=== PATIENT | female | born 1945 | race Hispanic/Latino ===

== ENCOUNTER 2019-04-14 17:24 | Observation (INO) | payer OTHER ==
[~2019-04-14] VITALS: Ht 134.6 cm; Wt 75.6 kg
[2019-04-14 18:09] LABS: BASOPHILS % (AUTO) 1.3 % (0.0-5.0); HEMATOCRIT 36.9 % (36-48); LYMPHOCYTES % (AUTO) 33.6 % (21.0-51.0); MEAN CORPUSCULAR HEMOGLOBIN 29.2 pg (27.0-33.0); MEAN CORPUSCULAR HGB CONC 32.8 g/dL (32.0-36.0); MEAN CORPUSCULAR VOLUME 88.9 fL (79-99); MONOCYTES % (AUTO) 7.7 % (3.0-13.0); NEUTROPHILS % (AUTO) 54.9 % (40.0-77.0); PLATELET COUNT (AUTO) 270 K/uL (130-400); RED BLOOD CELL COUNT(AUTO) 4.15 MIL/uL (4.00-5.50); RED CELL DISTRIBUTION WIDTH 11.8 % (11.0-15.5); WHITE BLOOD COUNT (AUTO) 6.1 K/uL (4.8-10.8)
[2019-04-14 18:21] LABS: INR 0.97 (0.85-1.15); PARTIAL THROMBOPLASTIN TIME 26.8 SEC (26.3-35.5); PROTHROMBIN TIME 10.5 SEC (9.6-11.6)
[2019-04-14] MEDS ORDERED: IOHEXOL-350 75 ML VIAL IV ONE (18:43)
[2019-04-14 18:48] LABS: CREATININE 1.2 mg/dL (0.5-1.5); POTASSIUM 3.7 mmol/L (3.5-5.1)
[2019-04-14 18:52] LABS: APPEARANCE,URINE Clear (CLEAR); BILIRUBIN,URINE Negative (NEGATIVE); COLOR,URINE Yellow (YELLOW); GLUCOSE, URINE (UA) Negative (NEGATIVE); KETONES,URINE Negative (NEGATIVE); LEUKOCYTE ESTERASE ,URINE Large (NEGATIVE); NITRATE,URINE Negative (NEGATIVE); OCCULT BLOOD,URINE Negative (NEGATIVE); PH,URINE 5.5 (5.0-8.0); PROTEIN,URINE Negative (NEGATIVE); UROBILINOGEN,URINE 0.2 mg/dL (0.2-1.0)
[2019-04-14 18:57] LABS: ALBUMIN 4.1 g/dL (3.5-5.0); BILIRUBIN,TOTAL 0.4 mg/dL (0.2-1.0); TOTAL PROTEIN, SERUM 8.3 g/dL (6.0-8.3)
[2019-04-14 19:04] LABS: AMPHET/METH SCREEN,URINE NEGATIVE (NEGATIVE); BARBITURATE SCREEN, URINE NEGATIVE (NEGATIVE); BENZODIAZEPINES SCREEN,URINE NEGATIVE (NEGATIVE); CANNABINOID SCREEN,URINE NEGATIVE (NEGATIVE); COCAINE SCREEN,URINE NEGATIVE (NEGATIVE); OPIATE SCREEN,URINE NEGATIVE (NEGATIVE); PHENCYCLIDINE SCREEN,URINE NEGATIVE (NEGATIVE)
[2019-04-14] MEDS ORDERED: ASPIRIN 325 MG TABLET ONE (19:26)
[2019-04-14 19:34] LABS: BACTERIA,URINE Many /HPF (None Seen); RBC,URINE None Seen /HPF (0-1); SQUAMOUS EPITHELIAL CELL,UR 0-2 /HPF (0-2)
[2019-04-14] MEDS ORDERED: ONDANSETRON HCL 4 MG/2 ML VIAL IV PRN (20:00)
[2019-04-14] MEDS ORDERED: HYDRALAZINE HCL 20 MG/ML VIAL IV PRN (20:00)
[2019-04-14] MEDS ORDERED: ACETAMINOPHEN 325 MG TAB PO PRN ×2 (20:00)
[2019-04-14] MEDS: CEFTRIAXONE SODIUM 1 GM IV SCH (20:00)
[2019-04-14] MEDS ORDERED: LACTULOSE 20 GM/30 ML UDCUP PO PRN (20:00)
[2019-04-14 20:50] LABS: THYROID STIMULATING HORMONE 5.7 uIU/mL (0.36-3.74)
[2019-04-14] MEDS: INSULIN HUMULIN R 100 UNIT/ML 3ML SQ SCH (21:00)
[2019-04-14] MEDS ORDERED: FAMOTIDINE 20MG TAB 20 MG TAB ONE (21:15)
[2019-04-14] MEDS ORDERED: CLOPIDOGREL BISULFATE 75 MG TAB ONE (21:15)
[2019-04-14] MEDS ORDERED: CEFTRIAXONE SODIUM 1 GM ONE (21:15)
[2019-04-14 22:15] VITALS: BP 156/76
[2019-04-15 04:18] VITALS: BP 127/65
[2019-04-15 05:01] LABS: BASOPHILS % (AUTO) 0.7 % (0.0-5.0); EOSINOPHILS % (AUTO) 3.1 % (0.0-8.0); HEMATOCRIT 32.6 % (36-48); LYMPHOCYTES % (AUTO) 34.8 % (21.0-51.0); MEAN CORPUSCULAR HEMOGLOBIN 29.4 pg (27.0-33.0); MEAN CORPUSCULAR HGB CONC 32.8 g/dL (32.0-36.0); MEAN CORPUSCULAR VOLUME 89.6 fL (79-99); MONOCYTES % (AUTO) 9.1 % (3.0-13.0); NEUTROPHILS % (AUTO) 51.9 % (40.0-77.0); PLATELET COUNT (AUTO) 222 K/uL (130-400); RED BLOOD CELL COUNT(AUTO) 3.64 MIL/uL (4.00-5.50); RED CELL DISTRIBUTION WIDTH 11.9 % (11.0-15.5); WHITE BLOOD COUNT (AUTO) 5.4 K/uL (4.8-10.8)
[2019-04-15 05:09] LABS: POTASSIUM 3.5 mmol/L (3.5-5.1)
[2019-04-15] MEDS: INSULIN HUMULIN R 100 UNIT/ML 3ML SQ SCH ×4 (06:33→21:00)
[2019-04-15 07:30] VITALS: BP 137/77
[2019-04-15] MEDS: CLOPIDOGREL BISULFATE 75 MG TAB PO SCH (08:22)
[2019-04-15] MEDS: FAMOTIDINE 20MG TAB 20 MG TAB PO SCH (08:22)
[2019-04-15] MEDS ORDERED: ASPIRIN 325 MG TABLET PO SCH (09:00)
--- NOTE | 2019-04-15 10:00 | NUR ---
DR. PEDRAZA HERE, FOR NEURO ASSESSMENT . CARE TO FOLLOW,
--- NOTE | 2019-04-15 10:00 | NUR ---
HERE,FOR ASSESSMENT, WITH RECOMMANDATION TO FOLLOW .
[2019-04-15 11:00] VITALS: BP 139/79
[2019-04-15] MEDS: ASPIRIN 81MG TAB.CHEW PO SCH (11:14)
--- NOTE | 2019-04-15 13:46 | NUR ---
DYSPHAGIA EVANGY COMPLETED. -S/S OF ASPIRATION. RECOMMENDATIONS REGULAR TEXTURE, THIN LIQUIDS; PILLS WHOLE WITH LIQUIDS. Addendum: 04/15/19 at 1347 by CRISTOBAL STYLES, [facility] Amended: Links added.
[2019-04-15 16:00] VITALS: BP 134/68
--- NOTE | 2019-04-15 17:26 | NUR ---
[id number] patient signed LAMB Letter,I faxed LMAB Letter to [id number] and placed in chart under consent tab
[2019-04-15 19:50] VITALS: BP 153/89
[2019-04-15] MEDS: CEFTRIAXONE SODIUM 1 GM IV SCH (22:08)
[2019-04-15 23:27] VITALS: BP 126/64
[2019-04-16 04:05] VITALS: BP 123/53
[2019-04-16 05:05] LABS: BASOPHILS % (AUTO) 0.9 % (0.0-5.0); EOSINOPHILS % (AUTO) 2.9 % (0.0-8.0); HEMATOCRIT 33.9 % (36-48); LYMPHOCYTES % (AUTO) 27.8 % (21.0-51.0); MEAN CORPUSCULAR HEMOGLOBIN 29.4 pg (27.0-33.0); MEAN CORPUSCULAR HGB CONC 33.3 g/dL (32.0-36.0); MEAN CORPUSCULAR VOLUME 88.1 fL (79-99); MONOCYTES % (AUTO) 7.8 % (3.0-13.0); NEUTROPHILS % (AUTO) 60.1 % (40.0-77.0); PLATELET COUNT (AUTO) 234 K/uL (130-400); RED BLOOD CELL COUNT(AUTO) 3.85 MIL/uL (4.00-5.50); RED CELL DISTRIBUTION WIDTH 11.7 % (11.0-15.5); WHITE BLOOD COUNT (AUTO) 5.8 K/uL (4.8-10.8)
[2019-04-16 05:19] LABS: CREATININE 1.1 mg/dL (0.5-1.5); POTASSIUM 3.8 mmol/L (3.5-5.1)
[2019-04-16] MEDS: INSULIN HUMULIN R 100 UNIT/ML 3ML SQ SCH (06:57)
[2019-04-16 07:30] VITALS: BP 136/73
[2019-04-16] MEDS: ASPIRIN 81MG TAB.CHEW PO SCH (07:56)
[2019-04-16] MEDS: FAMOTIDINE 20MG TAB 20 MG TAB PO SCH (07:56)
[2019-04-16] MEDS: CLOPIDOGREL BISULFATE 75 MG TAB PO SCH (07:57)
[2019-04-16 11:00] VITALS: BP 123/78
[2019-04-16] MEDS ORDERED: SULF1TAB42 PO (11:22)
--- NOTE | 2019-04-16 17:00 | NUR ---
DISCHARGE HOME, PER DISCHARGE NURSE ,TATI Madden R.N. SUMMARY , REVIEW TO FOLLOW WITH MILO MALIK AND HER PRIVATE DR. BETTENCOURT TO HEr rt forarsm was dc per discharge nurse,
== END 2019-04-16 17:00 | disposition home or self-care (01) ==
LOC: EDH 17:24 → EDHIP 19:49 → 4DH 20:53
PROVIDERS: ADMIT Internal Medicine; ATTEND Internal Medicine
DX: G31.9 Degenerative disease of nervous system, unspecified (principal); G45.9 Transient cerebral ischemic attack, unspecified; G51.0 Bell's palsy; N39.0 Urinary tract infection, site not specified; E11.9 Type 2 diabetes mellitus without complications; E78.5 Hyperlipidemia, unspecified; I10 Essential (primary) hypertension; M81.0 Age-related osteoporosis without current pathological fracture; Z86.73 Personal history of transient ischemic attack (TIA), and cerebral infarction without residual deficits; Z88.0 Allergy status to penicillin; Z91.041 Radiographic dye allergy status
CPT/HCPCS: 36415 ×3; 70450; 70551; 71045; 80048 ×2; 80053; 80061; 80305; 81001; 82550; 82948 ×8; 83721; 84443; 84484; 85025 ×3; 85610; 85730; 87077; 87088; 87186; 92610; 93005; 93306; 93356; 96372; 96374; 99285; G0378 ×6; J0696 ×2; J1815; Q9967

== ENCOUNTER 2022-06-13 10:42 | Emergency (ER) | payer OTHER ==
[~2022-06-13] VITALS: Ht 147.3 cm; Wt 63.5 kg
[~2022-06-13 10:42] MED LIST: SULF1TAB42 PO
[2022-06-13 11:18] LABS: BASOPHILS % (AUTO) 0.9 % (0.0-5.0); EOSINOPHILS % (AUTO) 1.9 % (0.0-8.0); HEMATOCRIT 37.5 % (36-48); LYMPHOCYTES % (AUTO) 18.8 % (21.0-51.0); MEAN CORPUSCULAR HEMOGLOBIN 29.6 pg (27.0-33.0); MEAN CORPUSCULAR HGB CONC 33.6 g/dL (32.0-36.0); MONOCYTES % (AUTO) 5.8 % (3.0-13.0); NEUTROPHILS % (AUTO) 72.1 % (40.0-77.0); PLATELET COUNT (AUTO) 282 K/uL (130-400); RED BLOOD CELL COUNT(AUTO) 4.26 MIL/uL (4.00-5.50); RED CELL DISTRIBUTION WIDTH 11.9 % (11.0-15.5)
[2022-06-13] MEDS ORDERED: PANTOPRAZOLE 40 MG/VIAL IVP ONE (11:30)
[2022-06-13] MEDS ORDERED: ONDANSETRON 4MG INJ IVP ONE (11:30)
[2022-06-13] MEDS ORDERED: 0.9% NACL 500ML IV.SOLN 500 ML IV SCH (11:30)
[2022-06-13 11:38] LABS: CREATININE 0.9 mg/dL (0.5-1.5); POTASSIUM 3.9 mmol/L (3.5-5.1)
[2022-06-13 11:43] LABS: ALBUMIN 3.9 g/dL (3.5-5.0)
[2022-06-13] MEDS ORDERED: POLY17PO4 PO ×2 (13:10→13:42)
[2022-06-13] MEDS ORDERED: CIPR-278 PO ×2 (13:10→13:42)
[2022-06-13 13:49] VITALS: BP 132/78
== END 2022-06-13 13:50 | disposition home or self-care (01) ==
LOC: EDH 10:42
DX: K52.9 Noninfective gastroenteritis and colitis, unspecified (principal); K59.00 Constipation, unspecified; R10.13 Epigastric pain; I10 Essential (primary) hypertension; E78.00 Pure hypercholesterolemia, unspecified; E11.9 Type 2 diabetes mellitus without complications; Z88.0 Allergy status to penicillin; Z88.8 Allergy status to other drugs, medicaments and biological substances; Z90.49 Acquired absence of other specified parts of digestive tract
CPT/HCPCS: 99285; 74176; 96374; 71045; 96361; 96375; 82150; 84484; 80053; 83690; 85025; 36415; 93005; J7040; J2405; C9113

== ENCOUNTER 2022-10-19 08:42 | Emergency (ER) | payer OTHER ==
[~2022-10-19] VITALS: Ht 142.2 cm; Wt 64.0 kg
[~2022-10-19 08:42] MED LIST changes: +CIPR-278 PO; +POLY17PO4 PO
[2022-10-19 08:47] VITALS: BP 162/80
[2022-10-19 09:53] LABS: APPEARANCE,URINE SL CLOUDY (CLEAR); BILIRUBIN,URINE NEGATIVE (NEGATIVE); COLOR,URINE YELLOW (YELLOW); GLUCOSE, URINE (UA) 250 mg/dL (NEGATIVE); KETONES,URINE 5 mg/dL (NEGATIVE); LEUKOCYTE ESTERASE ,URINE SMALL Leu/uL (NEGATIVE); NITRATE,URINE POSITIVE (NEGATIVE); OCCULT BLOOD,URINE TRACE-INTACT (NEGATIVE); PH,URINE 5.5 (5.0-8.0); PROTEIN,URINE 100 mg/dL (NEGATIVE)
[2022-10-19 10:02] VITALS: TEMP 102
[2022-10-19] MEDS: ACETAMINOPHEN 325 MG TAB PO ONE (10:02)
[2022-10-19] MEDS: ACETAMINOPHEN 325 MG TAB ONE (10:02)
[2022-10-19 10:36] LABS: ADD UA MICROSCOPIC YES
[2022-10-19 10:54] LABS: BACTERIA,URINE Many /HPF (None Seen); SQUAMOUS EPITHELIAL CELL,UR Few /HPF (0-2); WBC,URINE 26-50 /HPF (0-1)
[2022-10-19 11:07] LABS: COVID19 (SARS ANTIGEN RAPID) PRESUMPTIVE NEGATIVE (NEGATIVE); INFLUENZA TYPE A Negative For Type A (NEGATIVE); INFLUENZA TYPE B Negative For Type B (NEGATIVE)
[2022-10-19] MEDS ORDERED: MACR100 PO (13:06)
[2022-10-19] MEDS: NITROFURANTOIN MONOHYD/M-CRYST 100 MG CAPSULE PO ONE (13:07)
[2022-10-19 13:33] VITALS: PULSE 89; RESP 20; O2SAT 99
== END 2022-10-19 13:34 | disposition home or self-care (01) ==
LOC: EDH 08:42
DX: J02.9 Acute pharyngitis, unspecified (principal); N39.0 Urinary tract infection, site not specified; E11.9 Type 2 diabetes mellitus without complications; E78.00 Pure hypercholesterolemia, unspecified; I10 Essential (primary) hypertension; Z88.0 Allergy status to penicillin; Z88.8 Allergy status to other drugs, medicaments and biological substances; Z90.49 Acquired absence of other specified parts of digestive tract; Z20.822 Contact with and (suspected) exposure to COVID-19
CPT/HCPCS: 81001; 87077; 87088; 87186; 87426; 87804

== ENCOUNTER → 2023-01-18 | Outpatient (CLI) | payer OTHER ==
[~2023-01-18] MED LIST changes: +MACR100 PO
[2023-01-18 16:41] LABS: HEMOGLOBIN A1C 9.4 % (4.0-6.0)
[2023-01-18 16:52] LABS: ALBUMIN 3.9 g/dL (3.5-5.0); BILIRUBIN,TOTAL 0.4 mg/dL (0.2-1.0); POTASSIUM 4.4 mmol/L (3.5-5.1); THYROID STIMULATING HORMONE 3.41 uIU/mL (0.36-3.74); TOTAL PROTEIN, SERUM 8.1 g/dL (6.0-8.3)
== END | disposition home or self-care (01) ==
LOC: LAB 12:42
PROVIDERS: ATTEND Student in an Organized Health Care Education/Training Program
DX: R07.9 Chest pain, unspecified (principal); E78.5 Hyperlipidemia, unspecified; E11.9 Type 2 diabetes mellitus without complications; I10 Essential (primary) hypertension; Z79.899 Other long term (current) drug therapy
CPT/HCPCS: 36415; 80053; 82652; 83036; 84443

== ENCOUNTER → 2023-01-21 | Outpatient (CLI) | payer OTHER | END | disposition home or self-care (01) | LOC: SHCH 09:56 | PROVIDERS: ATTEND Student in an Organized Health Care Education/Training Program | DX: I51.7 Cardiomegaly (principal); R07.9 Chest pain, unspecified | CPT/HCPCS: 93306 ==

== ENCOUNTER → 2023-01-25 | Outpatient (CLI) | payer OTHER ==
[~2023-01-25] MED LIST changes: +IOHEXOL 350 MG/ML 100ML INFUS..BTL IV ONE; +METOPROLOL TARTRATE 1 MG/ML 5ML VIAL IV ONE
== END | disposition home or self-care (01) ==
LOC: RAH 07:32
PROVIDERS: ATTEND Student in an Organized Health Care Education/Training Program
DX: K44.9 Diaphragmatic hernia without obstruction or gangrene (principal); M47.815 Spondylosis without myelopathy or radiculopathy, thoracolumbar region; R07.9 Chest pain, unspecified
CPT/HCPCS: 75574; J3490; Q9967

== ENCOUNTER → 2023-05-15 | Outpatient (CLI) | payer OTHER ==
[~2023-05-15] MED LIST changes: -IOHEXOL 350 MG/ML 100ML INFUS..BTL IV ONE; -METOPROLOL TARTRATE 1 MG/ML 5ML VIAL IV ONE
== END | disposition home or self-care (01) ==
LOC: RAH 10:07
PROVIDERS: ATTEND Family Medicine
DX: I25.110 Atherosclerotic heart disease of native coronary artery with unstable angina pectoris (principal)
CPT/HCPCS: 71046

== ENCOUNTER 2023-05-27 17:22 | Observation (INO) | payer OTHER ==
[~2023-05-27] VITALS: Ht 134.6 cm; Wt 59.0 kg
[2023-05-27 21:29] LABS: BASOPHILS # (AUTO) 0.06 K/uL (0.00-0.20); BASOPHILS % (AUTO) 0.7 % (0.0-5.0); EOSINOPHILS # (AUTO) 0.05 K/uL (0.00-0.70); EOSINOPHILS % (AUTO) 0.6 % (0.0-8.0); HEMATOCRIT 39.3 % (36-48); IMMATURE GRANULOCYTE ABSOLUTE 0.05 K/uL (0-1); LYMPHOCYTES # (AUTO) 1.7 K/uL (1.0-4.8); LYMPHOCYTES % (AUTO) 20.8 % (21.0-51.0); MEAN CORPUSCULAR HEMOGLOBIN 30.8 pg (27.0-33.0); MEAN CORPUSCULAR HGB CONC 34.4 g/dL (32.0-36.0); MEAN CORPUSCULAR VOLUME 89.5 fL (79-99); MONOCYTES # (AUTO) 0.5 K/uL (0.1-1.0); MONOCYTES % (AUTO) 6.4 % (3.0-13.0); NEUTROPHILS # (AUTO) 5.8 K/uL (1.8-7.7); NEUTROPHILS % (AUTO) 70.9 % (40.0-77.0); PLATELET COUNT (AUTO) 316 K/uL (130-400); RED BLOOD CELL COUNT(AUTO) 4.39 MIL/uL (4.00-5.50); RED CELL DISTRIBUTION WIDTH 13.1 % (11.0-15.5); WHITE BLOOD COUNT (AUTO) 8.2 K/uL (4.8-10.8)
[2023-05-27 21:40] LABS: CREATININE 1.3 mg/dL (0.5-1.0); POTASSIUM 4.5 mmol/L (3.5-5.1)
[2023-05-27 21:49] LABS: ALBUMIN 3.8 g/dL (3.5-5.0); BILIRUBIN,TOTAL 0.5 mg/dL (0.2-1.0)
[2023-05-27 22:32] LABS: INR <= 0.93 (0.85-1.15); PROTHROMBIN TIME 10.4 SEC (9.6-11.6)
[2023-05-27 22:33] LABS: APPEARANCE,URINE CLEAR (CLEAR); BILIRUBIN,URINE NEGATIVE (NEGATIVE); COLOR,URINE LIGHT-YELLOW (YELLOW); GLUCOSE, URINE (UA) >=1000 mg/dL (NEGATIVE); KETONES,URINE NEGATIVE (NEGATIVE); LEUKOCYTE ESTERASE ,URINE 75 Leu/uL (NEGATIVE); NITRATE,URINE NEGATIVE (NEGATIVE); OCCULT BLOOD,URINE NEGATIVE (NEGATIVE); PROTEIN,URINE 20 mg/dL (NEGATIVE); UROBILINOGEN,URINE 0.2 mg/dL (0.2-1.0)
[2023-05-27 22:33] LABS: PARTIAL THROMBOPLASTIN TIME 26.5 SEC (26.3-35.5)
[2023-05-27 22:35] LABS: ADD UA MICROSCOPIC YES
[2023-05-27 22:48] LABS: BACTERIA,URINE MANY /HPF (None Seen); SQUAMOUS EPITHELIAL CELL,UR RARE /HPF (0-2)
[2023-05-27 23:07] LABS: SARS-CoV-2, RNA, NAAT NEGATIVE SARS CoV-2 (NEGATIVE)
[2023-05-27 23:11] LABS: INFLUENZA TYPE A Negative For Type A (NEGATIVE); INFLUENZA TYPE B Negative For Type B (NEGATIVE)
[2023-05-28] VITALS (11 sets, daily range): BP systolic 120–196; BP diastolic 58–85; PULSE 21–81; RESP 17–19; O2SAT 94–100
[2023-05-28 01:50] LABS: ABG BASE EXCESS -2.6 mmol/L (-2.0-3.0); ABG HCO3 21.2 mmol/L (21.0-28.0); ABG OXYGEN SATURATION 96.7 % (95.0-99.0); ABG PCO2 34 mmHg (32-45); ABG PH 7.409 (7.35-7.450); PO2, ARTERIAL BG 86.3 mmHg (83.0-108.0); VENT MODE, BG RA (ROOM AIR)
[2023-05-28] MEDS ORDERED: ATOR40TA71 PO (03:25)
[2023-05-28] MEDS ORDERED: PIOG30TA70 PO (03:25)
[2023-05-28] MEDS ORDERED: METF-446 PO (03:25)
[2023-05-28] MEDS ORDERED: LOSA100T59 PO (03:25)
[2023-05-28] MEDS ORDERED: DULA1.5P (03:25)
[2023-05-28] MEDS ORDERED: ALBU90AE2 IH (03:26)
[2023-05-28] MEDS ORDERED: HYDROCODONE/ACETAMINOPHEN 5/325 MG TAB PO PRN (04:00)
[2023-05-28] MEDS ORDERED: ACETAMINOPHEN 650 MG SUPPOSITORY RC PRN (04:00)
[2023-05-28] MEDS ORDERED: LABETALOL 20MG SYG IV PRN (04:00)
[2023-05-28] MEDS ORDERED: ALBUTEROL 0.083% 2.5 MG/3 ML INH IH PRN (04:00)
[2023-05-28] MEDS: LACTATED RINGERS 1000ML 1,000 ML IV SCH (04:07)
[2023-05-28] MEDS: HYDRALAZINE 20MG/ML VIAL IV PRN (05:42)
[2023-05-28] MEDS: INSULIN HUMULIN R 100 UNIT/ML 3ML SQ SCH ×3 (05:51→21:25)
[2023-05-28] MEDS ORDERED: METO25TA6 PO (05:59)
[2023-05-28] MEDS ORDERED: ATOR40TA69 PO (05:59)
[2023-05-28] MEDS ORDERED: METF-526 PO (05:59)
[2023-05-28] MEDS ORDERED: SEMA0.258 SQ (05:59)
[2023-05-28] MEDS ORDERED: DAPA5TAB PO (05:59)
[2023-05-28] MEDS: CEFTRIAXONE 1G VIAL IV SCH (08:01)
[2023-05-28] MEDS: DOCUSATE SODIUM 100 MG CAP PO SCH (08:01)
[2023-05-28] MEDS: FAMOTIDINE 20MG TAB PO SCH (09:49)
[2023-05-28] MEDS: HEPARIN 5,000 UNIT VIAL SQ SCH (09:50)
[2023-05-28] MEDS: SOLU-MEDROL 40MG VIAL IVP SCH (12:33)
[2023-05-28] MEDS: ACETAMINOPHEN 325 MG TAB PO PRN (16:22)
[2023-05-28] MEDS: BUDESONIDE 0.25 MG/2 ML INH IH SCH (18:47)
[2023-05-28] MEDS: IPRATROPIUM/ALBUTEROL SULFATE 3 ML SOLUTION IH SCH (18:48)
[2023-05-28] MEDS: INSULIN HUMULIN R 100 UNIT/ML 3ML SQ ONE (19:58)
[2023-05-28] MEDS: METOPROLOL TARTRATE 25 MG TAB PO SCH (19:59)
[2023-05-28] MEDS: ATORVASTATIN 40 MG TABLET PO SCH (20:00)
[2023-05-29] VITALS (13 sets, daily range): BP systolic 102–144; BP diastolic 54–71; PULSE 66–95; RESP 16–19; O2SAT 97–99
[2023-05-29 04:39] LABS: BASOPHILS # (AUTO) 0.02 K/uL (0.00-0.20); BASOPHILS % (AUTO) 0.2 % (0.0-5.0); HEMATOCRIT 40.1 % (36-48); IMMATURE GRANULOCYTE ABSOLUTE 0.04 K/uL (0-1); LYMPHOCYTES # (AUTO) 0.4 K/uL (1.0-4.8); LYMPHOCYTES % (AUTO) 4.9 % (21.0-51.0); MEAN CORPUSCULAR HEMOGLOBIN 30.8 pg (27.0-33.0); MEAN CORPUSCULAR HGB CONC 34.4 g/dL (32.0-36.0); MEAN CORPUSCULAR VOLUME 89.5 fL (79-99); MONOCYTES # (AUTO) 0.3 K/uL (0.1-1.0); MONOCYTES % (AUTO) 2.8 % (3.0-13.0); NEUTROPHILS # (AUTO) 8.2 K/uL (1.8-7.7); NEUTROPHILS % (AUTO) 91.7 % (40.0-77.0); PLATELET COUNT (AUTO) 321 K/uL (130-400); RED BLOOD CELL COUNT(AUTO) 4.48 MIL/uL (4.00-5.50); RED CELL DISTRIBUTION WIDTH 12.9 % (11.0-15.5); WHITE BLOOD COUNT (AUTO) 8.9 K/uL (4.8-10.8)
[2023-05-29 04:51] LABS: CREATININE 1.2 mg/dL (0.5-1.0); MAGNESIUM 1.8 mg/dL (1.80-2.40); PHOSPHORUS 3.5 mg/dL (2.5-4.9); POTASSIUM 3.8 mmol/L (3.5-5.1)
[2023-05-29] MEDS: KCL 20 MEQ ERTAB PO PRN (05:54)
[2023-05-29] MEDS: MAGNESIUM 2GM PREMIX 50ML 50 ML IV PRN (05:55)
[2023-05-29] MEDS ORDERED: POTASSIUM CHLORIDE 20MEQ/100ML 100 ML IV PRN (06:00)
[2023-05-29] MEDS ORDERED: POTASSIUM CHLORIDE 10% ELIXIR 20 MEQ/15 ML UDCUP PO PRN (06:00)
[2023-05-29] MEDS: CEFTRIAXONE 2GM VIAL IVPB SCH (08:27)
[2023-05-29] MEDS: LOSARTAN 100 MG TABLET PO SCH (08:28)
[2023-05-29] MEDS: INSULIN GLARGINE 100 UNITS/ML 10 ML VIAL SQ SCH (08:37)
[2023-05-29] MEDS: INSULIN LISPRO 100 UNIT/ML 3ML SQ SCH (12:42)
[2023-05-29] MEDS: INSULIN LISPRO 100 UNIT/ML 3ML SQ ONE (12:44)
[2023-05-29] MEDS: SOLU-MEDROL 40MG VIAL IVP SCH (19:35)
[2023-05-29] MEDS: SOLU-MEDROL 40MG VIAL ONE (19:35)
[2023-05-29] MEDS ORDERED: OMEP40CA21 PO (21:52)
[2023-05-29] MEDS ORDERED: OLME20TA68 PO (21:52)
[2023-05-29] MEDS ORDERED: ALEN70TA80 PO (21:52)
[2023-05-29] MEDS ORDERED: FENO54TA6 PO (21:52)
[2023-05-29] MEDS ORDERED: FOLI1 PO (21:52)
[2023-05-29] MEDS ORDERED: DULO30CA52 PO (21:52)
[2023-05-29] MEDS ORDERED: ROSU5TAB12 PO (21:52)
[2023-05-29] MEDS ORDERED: INSU100V37 SQ (21:52)
[2023-05-29] MEDS ORDERED: FOLI0.8T22 PO (21:52)
[2023-05-29] MEDS ORDERED: BUPR-113 PO (21:52)
[2023-05-29] MEDS ORDERED: MORP15TA43 PO (21:52)
[2023-05-29] MEDS ORDERED: DAPA10TA PO (21:52)
[2023-05-29] MEDS ORDERED: LEVO75TA10 PO (21:52)
[2023-05-29] MEDS ORDERED: NORT25CA3 PO (21:52)
[2023-05-30 04:01] VITALS: BP 116/65; PULSE 79; RESP 18
[2023-05-30 04:20] LABS: HEMATOCRIT 31.6 % (36-48); MEAN CORPUSCULAR HEMOGLOBIN 30.3 pg (27.0-33.0); MEAN CORPUSCULAR HGB CONC 34.8 g/dL (32.0-36.0); MEAN CORPUSCULAR VOLUME 87.1 fL (79-99); RED BLOOD CELL COUNT(AUTO) 3.63 MIL/uL (4.00-5.50); RED CELL DISTRIBUTION WIDTH 13.2 % (11.0-15.5); WHITE BLOOD COUNT (AUTO) 9.9 K/uL (4.8-10.8)
[2023-05-30 04:25] LABS: CREATININE 1.1 mg/dL (0.5-1.0); POTASSIUM 4.4 mmol/L (3.5-5.1)
[2023-05-30 06:39] VITALS: PULSE 71; RESP 18; O2SAT 98
[2023-05-30 06:48] VITALS: PULSE 71; RESP 18
[2023-05-30 08:00] VITALS: BP 121/64; PULSE 86; RESP 18; O2SAT 97
[2023-05-30 11:06] VITALS: PULSE 73; RESP 18; O2SAT 98
[2023-05-30 11:07] VITALS: PULSE 73; RESP 18
[2023-05-30] MEDS ORDERED: PRED10TA3 PO ×2 (11:56→14:16)
[2023-05-30] MEDS ORDERED: NITR100C PO ×2 (12:28→14:15)
== END 2023-05-30 15:15 | disposition home or self-care (01) ==
LOC: EDH 17:22 → EDHIP 05-28 03:41 → INTOOBSV 05-28 03:41 → 4AH 05-28 05:21
PROVIDERS: ADMIT Internal Medicine; ATTEND Internal Medicine
DX: J44.1 Chronic obstructive pulmonary disease with (acute) exacerbation (principal); Z20.822 Contact with and (suspected) exposure to COVID-19; N30.00 Acute cystitis without hematuria; I12.9 Hypertensive chronic kidney disease with stage 1 through stage 4 chronic kidney disease, or unspecified chronic kidney disease; E11.22 Type 2 diabetes mellitus with diabetic chronic kidney disease; N18.30 Chronic kidney disease, stage 3 unspecified; N17.9 Acute kidney failure, unspecified; E11.65 Type 2 diabetes mellitus with hyperglycemia; E78.00 Pure hypercholesterolemia, unspecified; I20.0 Unstable angina; E87.1 Hypo-osmolality and hyponatremia; G47.33 Obstructive sleep apnea (adult) (pediatric); N81.4 Uterovaginal prolapse, unspecified; E66.9 Obesity, unspecified; Z88.0 Allergy status to penicillin; Z88.8 Allergy status to other drugs, medicaments and biological substances; Z90.49 Acquired absence of other specified parts of digestive tract; Z68.31 Body mass index [BMI] 31.0-31.9, adult; Z77.22 Contact with and (suspected) exposure to environmental tobacco smoke (acute) (chronic)
CPT/HCPCS: 84484 ×3; 80053; 83880 ×2; 85025 ×2; 85610; 85730; 87088; 87804 ×2; 81001; 36415 ×4; 87635; 71045; 70450; 93005 ×3; 96376 ×3; 96372 ×5; 96361; 96375; 99285; 82803; 85378; 87077; 87186; 82948 ×10; 71250; 93306; 93356; 36600; 94640 ×8; 94664; 96365; 96366 ×2; 96368; 83735 ×2; 84100; 80048 ×2; 97161; 97116 ×2; 97530 ×2; 85027; G0378 ×53; J0360; J0696 ×4; J2920 ×5; J1644 ×5; J1815 ×5; J3475

== ENCOUNTER 2023-09-16 11:53 | Emergency (ER) | payer OTHER ==
[~2023-09-16] VITALS: Ht 144.8 cm; Wt 54.4 kg
[~2023-09-16 11:53] MED LIST changes: -CIPR-278 PO; -MACR100 PO; +NITR100C PO; -POLY17PO4 PO; +PRED10TA3 PO; -SULF1TAB42 PO
[2023-09-16] MEDS: ACETAMINOPHEN 325 MG TAB PO ONE (12:32)
[2023-09-16 13:24] LABS: BASOPHILS # (AUTO) 0.07 K/uL (0.00-0.20); BASOPHILS % (AUTO) 0.9 % (0.0-5.0); EOSINOPHILS # (AUTO) 0.06 K/uL (0.00-0.70); EOSINOPHILS % (AUTO) 0.7 % (0.0-8.0); HEMATOCRIT 38.4 % (36-48); IMMATURE GRANULOCYTE ABSOLUTE 0.06 K/uL (0-1); LYMPHOCYTES # (AUTO) 1.5 K/uL (1.0-4.8); LYMPHOCYTES % (AUTO) 18.4 % (21.0-51.0); MEAN CORPUSCULAR HEMOGLOBIN 30.5 pg (27.0-33.0); MEAN CORPUSCULAR HGB CONC 34.1 g/dL (32.0-36.0); MEAN CORPUSCULAR VOLUME 89.3 fL (79-99); MONOCYTES # (AUTO) 0.6 K/uL (0.1-1.0); MONOCYTES % (AUTO) 7.2 % (3.0-13.0); NEUTROPHILS # (AUTO) 5.8 K/uL (1.8-7.7); NEUTROPHILS % (AUTO) 72.1 % (40.0-77.0); PLATELET COUNT (AUTO) 300 K/uL (130-400); RED CELL DISTRIBUTION WIDTH 11.7 % (11.0-15.5); WHITE BLOOD COUNT (AUTO) 8.1 K/uL (4.8-10.8)
[2023-09-16 13:31] LABS: CREATININE 1.1 mg/dL (0.5-1.0); MAGNESIUM 1.8 mg/dL (1.80-2.40); POTASSIUM 4.7 mmol/L (3.5-5.1)
[2023-09-16] MEDS: 0.9% NACL 500ML IV.SOLN 500 ML IV ONE (14:57)
[2023-09-16] MEDS: INSULIN HUMULIN R 100 UNIT/ML 3ML IV ONE (14:59)
[2023-09-16 15:20] LABS: APPEARANCE,URINE CLEAR (CLEAR); BILIRUBIN,URINE NEGATIVE (NEGATIVE); COLOR,URINE COLORLESS (YELLOW); GLUCOSE, URINE (UA) >=1000 mg/dL (NEGATIVE); KETONES,URINE NEGATIVE (NEGATIVE); LEUKOCYTE ESTERASE ,URINE NEGATIVE Leu/uL (NEGATIVE); NITRATE,URINE NEGATIVE (NEGATIVE); OCCULT BLOOD,URINE NEGATIVE (NEGATIVE); PROTEIN,URINE NEGATIVE (NEGATIVE); UROBILINOGEN,URINE 0.2 mg/dL (0.2-1.0)
[2023-09-16 15:29] LABS: ADD UA MICROSCOPIC YES
[2023-09-16 15:31] LABS: BACTERIA,URINE FEW /HPF (None Seen); MUCUS,URINE RARE LPF (None Seen); RBC,URINE 0-1 /HPF (0-1); WBC,URINE 0-1 /HPF (0-1)
[2023-09-16 16:00] VITALS: BP 108/57; PULSE 50; RESP 18; O2SAT 96
== END 2023-09-16 16:33 | disposition home or self-care (01) ==
LOC: EDH 11:53
DX: S09.8XXA Other specified injuries of head, initial encounter (principal); S00.03XA Contusion of scalp, initial encounter; M79.89 Other specified soft tissue disorders; E86.0 Dehydration; E11.65 Type 2 diabetes mellitus with hyperglycemia; E78.00 Pure hypercholesterolemia, unspecified; I10 Essential (primary) hypertension; Z79.899 Other long term (current) drug therapy; Z88.0 Allergy status to penicillin; Z88.8 Allergy status to other drugs, medicaments and biological substances; Z90.49 Acquired absence of other specified parts of digestive tract; W18.39XA Other fall on same level, initial encounter; Y93.89 Activity, other specified; Y92.89 Other specified places as the place of occurrence of the external cause; Y99.8 Other external cause status
CPT/HCPCS: 99285; 70450; 96374; 83735; 84484; 80048; 85025; 82948; 81001; 36415; 73562; 72125; 93005; J1815; J7040

== ENCOUNTER → 2024-01-01 | Outpatient (CLI) | payer OTHER ==
--- NOTE | 2024-01-03 12:59 | HMCSR ---
APPROVED REPORT Duplex Results A/PTransverseLongitudinalVelocityWaveform Proximal Aorta 2.85cm2.86cm2.84cm81.50 cm/secNormal Mid Aorta 1.84cm1.88cm1.91cm70.80 cm/secNormal Distal Aorta 2.00cm1.90cm1.98cm89.20 cm/secNormal Rt. Common Iliac Artery1.19cm1.30cm1.12cm81.50 cm/secNormal Lt. Common Iliac Artery 1.39cm1.27cm1.31cm73.80 cm/secNormal Techologist Impression The abdominal aorta and the bilateral common iliac arteries are patent and normal in size without dany dence of aneurysm. Conclusion The abdominal aorta and the bilateral common iliac arteries are patent and normal in size without dany dence of aneurysm. Conclusion The abdominal aorta and the bilateral common iliac arteries are patent and normal in size without dany dence of aneurysm.
--- NOTE | 2024-01-03 13:00 | HMCSR ---
APPROVED REPORT Laterality: Bilateral Doppler Spectral Velocity Analysis PSV / EDVPSV / EDV ECA (R) 52 / cm/sECA (L) 58 / cm/s dICA (R) 62 / 23 cm/sdICA (L) 101 / 37 cm/s Jewels (R) 79 / 27 cm/smICA (L) 107 / 40 cm/s pICA (R) 51 / 16 cm/spICA (L) 49 / 16 cm/s dCCA (R) 46 / 15 cm/sdCCA (L) 71 / 19 cm/s mCCA (R) 61 / 14 cm/smCCA (L) 85 / 22 cm/s pCCA (R) 72 / 19 cm/spCCA (L) 81 / 15 cm/s Vert (R) 48 / cm/sVert (L) 49 / cm/s Subl. (R) 99 / cm/sSubl. (L) 93 / cm/s ICA/CCA 1.10ICA/CCA 1.26 Technologist Impression Mild plaque noted in the bilateral carotid arteries without hemodynamic significance. The bilateral vertebral arteries reflect antegrade flow. Conclusion Mild plaque noted in the bilateral carotid arteries without hemodynamic significance. The bilateral vertebral arteries reflect antegrade flow. Conclusion Mild plaque noted in the bilateral carotid arteries without hemodynamic significance. The bilateral vertebral arteries reflect antegrade flow.
== END | disposition home or self-care (01) ==
LOC: SHCH 08:39
PROVIDERS: ATTEND Student in an Organized Health Care Education/Training Program
DX: I65.23 Occlusion and stenosis of bilateral carotid arteries (principal); I71.40 Abdominal aortic aneurysm, without rupture, unspecified; R07.89 Other chest pain
CPT/HCPCS: 93880; 93978

== ENCOUNTER 2024-07-06 01:41 | Emergency (ER) | payer OTHER ==
[~2024-07-06] VITALS: Ht 134.6 cm; Wt 65.3 kg
[~2024-07-06 01:41] MED LIST changes: +SULF1TAB42 PO
[2024-07-06 02:33] LABS: HEMATOCRIT 33.3 % (36-48); MEAN CORPUSCULAR HGB CONC 33.9 g/dL (32.0-36.0); MEAN CORPUSCULAR VOLUME 88.3 fL (79-99); RED BLOOD CELL COUNT(AUTO) 3.77 MIL/uL (4.00-5.50); RED CELL DISTRIBUTION WIDTH 12.5 % (11.0-15.5); WHITE BLOOD COUNT (AUTO) 7.2 K/uL (4.8-10.8)
[2024-07-06 02:34] VITALS: BP 165/58; PULSE 62; RESP 18; TEMP 98.7; O2SAT 98
[2024-07-06 02:48] LABS: CREATININE 1.1 mg/dL (0.5-1.0); POTASSIUM 3.9 mmol/L (3.5-5.1)
--- NOTE | 2024-07-06 03:05 | ERN ---
General Chief Complaint: Vaginal Problems/Bleeding Stated Complaint: VAGINAL BLEEDING Time Seen by MD: 01:50 History of Present Illness Initial Comments 78F presents for vaginal bleeding. Patient has an hx of uterus prolapse. Today, while in the shower, the uterus had fallen out but went back in. She had a small amount of bright red blood. Currently she is pain free and the uterus is intact. She's otherwise been in a normal state of health. Allergies: Coded Allergies: Penicillins (Verified Allergy, Unknown, 04/14/19) iodine (Verified Allergy, Unknown, 04/14/19) Home Meds Active Scripts Sulfamethoxazole/Trimethoprim (Bactrim Ds Tablet) 800 Mg-160 Mg Tablet, 1 TAB PO BID for 7 Days, #14 TAB 0 Refills Prov:MARY GALINDO NP 05/19/24 Prednisone (Prednisone) 10 Mg Tablet, 10 MG PO BID, #35 TAB Take 2 tabs 2 times a day for 5 days Then take 1 tab 2 times a day for 5 days Then take 1 tab 1 time a day for 5 days. Prov:YASHIRA WEINBERG 05/30/23 Nitrofurantoin Macrocrystal (Nitrofurantoin) 100 Mg Capsule, 100 MG PO QID for 5 Days, #20 CAP 0 Refills Prov:YASHIRA WEINBERG 05/30/23 Past Medical History Past Medical History: Diabetes-Type II, High Cholesterol, Hypertension Medical History Other: UTERINE ISSUES Past Surgical History: Cholecystectomy Family History Family History: Negative Social History Social History: Negative, Lives with family Female( History) History: Not Applicable ROS Dictation CONSTITUTIONAL: No chills, no fever, no weakness, no diaphoresis, no malaise. HEAD/FACE: No signs of trauma. EENT: No eye pain, no blurred vision, no tearing, no double vision, no ear pain, no ear discharge, no nose pain, no nasal congestion, no throat pain, no throat swelling, no mouth pain. RESPIRATORY: No cough, no orthopnea, no SOB, no stridor, no wheezing. CARDIOVASCULAR: No chest pain, no edema, no palpitations, no syncope. GASTROINTESTINAL/ABDOMINAL: No abdominal pain, no constipation, no diarrhea, no nausea, no vomiting. GENITOURINARY: No abnormal discharge, no dysuria, no frequent urination, no hematuria. No complaints of pain in the genitals. MUSCULOSKELETAL: No back pain, no gout, no joint pain, no joint swelling, no muscle pain, no muscle stiffness, no neck pain. INTEGUMENTARY: No change in color, no change in hair/nails, no dryness, no lesion, no lumps, no rash. NEUROLOGICAL/PSYCH: No anxiety, not depressed, no emotional problem, no headache, no numbness, no pre-existing deficit, no history of seizures, no tremors, no weakness. HEMATOLOGIC/LYMPHATIC: Not anemic, no history of blood clots, no apparent bleeding, no bruising, glands not swollen. All Systems Negative, Except as Noted. Physical Exam Physical Exam Dictation VITAL SIGNS: Reviewed. GENERAL APPEARANCE: Alert, oriented x3, no acute distress. HEAD AND FACE: Non-traumatic. EYES: PERRL, pink conjunctivas, eyelid no trauma, anterior chamber clear. EARS: Pinnas intact and no signs of trauma or erythema. Ear canals clear and no discharge. TMs no erythema. NOSE: No discharge, no bleeding. OROPHARYNX: Mouth normal, teeth no caries, tongue pink. Pharynx clear, no erythema. Tonsils no exudates, no abscesses noted. Mucous membrane moist. NECK: Supple, non-tender, no thyromegaly, no masses, no JVD, no bruits. BREAST: Deferred. CHEST: No tenderness, no crepitus, no paradoxical movement, no retractions. LUNGS: Clear, well-ventilated, symmetric, no rales, no wheezing, no rhonchi, no stridor, good breath sounds bilaterally. HEART: Regular rate, regular rhythm, no murmur, no gallops. VASCULAR: No peripheral edema. ABDOMEN: Soft, positive bowel sounds, nondistended, no guarding, nontender, no rebound, no masses no hepatomegaly, no splenomegaly, no Molina's sign, no hernias. RECTAL: Deferred. GENITAL: Deferred. NEUROLOGICAL: Normal speech, gross motor function intact, gross sensory function intact. MUSCULOSKELETAL: Neck nontender, full range of motion, back nontender, full range of motion. EXTREMITIES: Nontender, full range of motion. SKIN: Color pink, dry, no turgor, no rash, no lacerations, no abrasions, no contusions. LYMPHATICS: Deferred. Results Laboratory and Microbiology Lab and Micro Result Laboratory Tests Test 07/06/24 02:23 07/06/24 02:30 White Blood Count 7.2 K/uL (4.8-10.8) Red Blood Count 3.77 MIL/uL (4.00-5.50) L Hemoglobin 11.3 g/dL (12.0-16.0) L Hematocrit 33.3 % (36-48) L Mean Corpuscular Volume 88.3 fL (79-99) Mean Corpuscular Hemoglobin 30.0 pg (27.0-33.0) Mean Corpuscular Hemoglobin Concent 33.9 g/dL (32.0-36.0) Red Cell Distribution Width 12.5 % (11.0-15.5) Platelet Count 327 K/uL (130-400) Mean Platelet Volume 9.2 fL (7.5-10.5) Nucleated Red Blood Cells 0.0 % (0.0-0.19) Sodium Level 136 mmol/L (136-145) Potassium Level 3.9 mmol/L (3.5-5.1) Chloride Level 100 mmol/L (101-111) L Carbon Dioxide Level 26 mmol/L (21-32) Blood Urea Nitrogen 24 mg/dL (7-18) H Creatinine 1.1 mg/dL (0.5-1.0) H Glomerular Filtration Rate Calc 52 mL/min (>90) Random Glucose 366 mg/dL (70-105) H Total Calcium 9.5 mg/dL (8.5-10.1) Urine Color COLORLESS (YELLOW) Urine Appearance CLEAR (CLEAR) Urine pH 5.5 (5.0-8.0) Urine Specific [place] 1.023 (1.001-1.031) Urine Protein NEGATIVE mg/dL (NEGATIVE) Urine Glucose (UA) >=1000 mg/dL (NEGATIVE) H Urine Ketones NEGATIVE mg/dL (NEGATIVE) Urine Occult Blood NEGATIVE (NEGATIVE) Urine Nitrate 1+ (NEGATIVE) H Urine Bilirubin NEGATIVE mg/dL (NEGATIVE) Urine Urobilinogen 0.2 mg/dL (0.2-1.0) Urine Leukocyte Esterase NEGATIVE Bekah/uL MDM CC: VB, recently prolapsed uterus reduced now Ovarian: Patient Comorbidities: Advanced age, prolapsed uterus Limitations by social determinants of health: None Differential diagnosis: UTI, vaginal bleeding, anemia, other Vital signs stable remained stable The CBC is normal metabolic panel normal, +nitrites in the urine we will treat as UTI No treatment in the ER ED Course Orders Procedure Category Date Status Time Cbc Without LAB 07/06/24 Complete Differential 02:24 Basic Metabolic Panel LAB 07/06/24 Complete 02:24 Urinalysis Profile LAB 07/06/24 In Process 02:24 Culture Urine NAIMA 07/06/24 In Process 03:15 Vital Signs Date Time Temp Pulse Resp B/P (MAP) Pulse Ox O2 Delivery O2 Flow Rate FiO2 07/06/24 02:34 98.8 62 18 165/58 98 Room Air* 0 21 07/06/24 01:42 98.1 68 16 179/78 98 Room Air 0 DX & DISP Disposition: Discharge Departure Impression: Primary Impression: UTI (urinary tract infection) Condition: Stable Scripts Nitrofurantoin/Nitrofuran Mac (Macrobid) 100 Mg Cap 1 CAP PO BID for 5 Days, #10 CAP 0 Refills Prov: ANALY HERRERA DO 07/06/24 Additional Instructions: Your exam is unremarkable. Your vital signs are stable. Your blood work (CBC, metabolic panel) is unremarkable. You do have bacteria in your urine. I have given you an antibiotic prescription. Take as prescribed. Please follow up with Dr. Merida as an outpatient. Referrals: ELISABETH MCCAIN MD (PCP) ANALY HERRERA DO July 06, 2024 03:05
[2024-07-06 03:14] LABS: ADD UA MICROSCOPIC YES; APPEARANCE,URINE CLEAR (CLEAR); BILIRUBIN,URINE NEGATIVE (NEGATIVE); COLOR,URINE COLORLESS (YELLOW); GLUCOSE, URINE (UA) >=1000 mg/dL (NEGATIVE); KETONES,URINE NEGATIVE (NEGATIVE); LEUKOCYTE ESTERASE ,URINE NEGATIVE Leu/uL (NEGATIVE); NITRATE,URINE 1+ (NEGATIVE); OCCULT BLOOD,URINE NEGATIVE (NEGATIVE); PH,URINE 5.5 (5.0-8.0); PROTEIN,URINE NEGATIVE (NEGATIVE); UROBILINOGEN,URINE 0.2 mg/dL (0.2-1.0)
[2024-07-06 03:17] LABS: BACTERIA,URINE RARE /HPF (None Seen); MUCUS,URINE RARE LPF (None Seen); RBC,URINE 0-1 /HPF (0-1); SQUAMOUS EPITHELIAL CELL,UR RARE /HPF (0-2)
[2024-07-06] MEDS ORDERED: MACR100 PO (03:17)
== END 2024-07-06 03:29 | disposition home or self-care (01) ==
LOC: EDH 01:41
DX: N39.0 Urinary tract infection, site not specified (principal); E11.9 Type 2 diabetes mellitus without complications; E78.00 Pure hypercholesterolemia, unspecified; I10 Essential (primary) hypertension; Z79.52 Long term (current) use of systemic steroids; Z88.0 Allergy status to penicillin; Z88.8 Allergy status to other drugs, medicaments and biological substances; Z90.49 Acquired absence of other specified parts of digestive tract; Z91.041 Radiographic dye allergy status
CPT/HCPCS: 36415; 80048; 81001; 85027; 87086; 87186; 99283

== ENCOUNTER 2025-02-05 08:56 | Emergency (ER) | payer OTHER ==
[~2025-02-05] VITALS: Ht 134.6 cm; Wt 55.3 kg
[~2025-02-05 08:56] MED LIST changes: +MACR100 PO
--- NOTE | 2025-02-05 09:09 | ERN ---
General Chief Complaint: Laceration/Avulsion Stated Complaint: LACERATION Time Seen by MD: 09:04 Source: patient History of Present Illness Initial Comments The patient is a 79-year-old female who came to the ER after hitting her head while trying to get up from a sitting position yesterday. The patient has a small superficial laceration on head (2-3 cm) head which is tender now. The patient felt dizzy for a few seconds. The patient did not lose consciousness. Today the patient developed pain behind her right eye that prompted her to come to the ER Allergies: Coded Allergies: Penicillins (Verified Allergy, Unknown, 04/14/19) iodine (Verified Allergy, Unknown, 04/14/19) Home Meds Active Scripts Nitrofurantoin/Nitrofuran Mac (Macrobid) 100 Mg Cap, 1 CAP PO BID for 5 Days, #10 CAP 0 Refills Prov:ANALY HERRERA DO 07/06/24 Sulfamethoxazole/Trimethoprim (Bactrim Ds Tablet) 800 Mg-160 Mg Tablet, 1 TAB PO BID for 7 Days, #14 TAB 0 Refills Prov:MARY GALINDO CNP 05/19/24 Prednisone (Prednisone) 10 Mg Tablet, 10 MG PO BID, #35 TAB Take 2 tabs 2 times a day for 5 days Then take 1 tab 2 times a day for 5 days Then take 1 tab 1 time a day for 5 days. Prov:YASHIRA WEINBERG [facility] 05/30/23 Nitrofurantoin Macrocrystal (Nitrofurantoin) 100 Mg Capsule, 100 MG PO QID for 5 Days, #20 CAP 0 Refills Prov:YASHIRA WEINBERG [facility] 05/30/23 Past Medical History Past Medical History: Diabetes-Type II, High Cholesterol, Hypertension Medical History Other: UTERINE ISSUES Past Surgical History: Cholecystectomy Family History Family History: Negative Social History Social History: Negative, Lives with family Female( History) History: Not Applicable EENTM: (+) eye pain Skin: (+) laceration Physical Exam General Appearance: (-) no apparent distress, (-) apparent distress, (-) mild distress, (-) moderate distress, (-) severe distress, (-) thin, (-) obese, (-) combative, (-) cachetic, (-) anxious, (-) other documentation Orientation: (-) alert, (-) oriented x 3, (-) disoriented, (-) other documentation Ear, Nose, Throat: (-) hearing grossly normal, (-) normal ENT inspection, (-) moist mucous membraine, (-) normal pharynx, (-) normal TM, (-) abnormal TM, (-) pharyngeal erythema, (-) sinus drainange, (-) sinus pain, (-) tonsillar exudate, (-) tonsillar swelling, (-) nasal drip, (-) nasal congestion, (-) hearing decreased, (-) dry mucous membraine, (-) other documentation Neck: (-) normal inspection, (-) supple, (-) full range of motion, (-) no JVD, (-) non-tender, (-) no bruit, (-) tender, (-) limited range of motion, (-) tender lateral, (-) tender midline, (-) thyromegaly, (-) lymphadenopathy, (-) masses, (-) carotid bruit, (-) other documentaion Respiratory: (-) chest non-tender, (-) lungs clear, (-) well ventilated, (-) decreased breath sounds, (-) retractions, (-) abnormal breath sound, (-) cr ackles, (-) plerual rub, (-) rales, (-) rhonchi, (-) stridor, (-) wheezing, (-) other documentation Heart: (-) regular, (-) no gallop, (-) murmur, (-) irregular, (-) bradycardia, (-) tachycardia, (-) systolic murmur, (-) diastolic murmur, (-) extra beats, (-) friction rub, (-) gallop/S3, (-) gallop/S4, (-) other documentation Gastrointestinal: (-) soft, (-) non-tender, (-) no organomegaly, (-) bowel sound present, (-) distended, (-) tender, (-) abnormal bowel sounds, (-) bowel sound absent, (-) rebound, (-) ngo's sign, (-) guarding, (-) hernia, (-) mass, (-) pulsatile mass, (-) CVA tenderness, (-) hepatomegaly, (-) spleenomegaly, (-) other documentation, (-) McBerney's, (-) other documentation Skin Comment superficial laceration on head MDM MDM: Differential diagnosis: Rationale: Tests considered and ordered secondary to shared decision making include: Previous outside records reviewed: Old ER visits. Risk of complication and/or morbidity or mortality of patient management: None Medications-Per medication reconciliation Need for hospitalization: Patient does not meet criteria for hospitalization. Need for emergency major/minor surgery: No There are no social concerns with this patient. Prescription drug management Prescriptions will include symptomatic care Patient's prior external medical records from other ER visits were reviewed by me as indicated. Prior testing and results from previous visits were reviewed. Prior tests were taken into account with medical decision making and resource utilization, independent historian/historians were used to obtain complete medical history. I independently interpreted the test that were performed, results were reviewed by me and considered findings on radiology if ordered. Medical management and examination interpretation discussions were had by me wit h other qualified healthcare professionals as indicated for the patient's care. Patient has a re-evaluated and has a no concerns. Patient is able to ambulate without any concerns. The above one was placed on the small laceration so he has been here with a longer. Patient to follow up with the primary care physician. Patient understands and agrees with plan of care. ED Course Orders Procedure Category Date Status Time Ct Head/Brain W/O CT 02/05/25 Resulted Contrast 09:04 Ct Cervical Spine W/O CT 02/05/25 Resulted Contrast 09:04 Dermabond (Dermabond) PHA 02/05/25 Complete 10:20 Dermabond Set Up CPOE 02/05/25 Transmitted Bedside (Er) 10:20 Wound Care (Er) CPOE 02/05/25 Transmitted 10:20 Vital Signs Date Time Temp Pulse Resp B/P (MAP) Pulse Ox O2 Delivery O2 Flow Rate FiO2 02/05/25 10:30 97.9 68 18 154/79 98 Room Air* 0 21 02/05/25 08:59 97.5 68 18 146/80 98 Room Air 0 DX & DISP Disposition: Discharge Departure Impression: Primary Impression: Fall Condition: Stable Referrals: ELISABETH MCCAIN MD (PCP) APOLINAR DEY MD Feb 05, 2025 09:09 ROBERT YADAV MD Feb 05, 2025 10:28
--- NOTE | 2025-02-05 10:05 | HMCIMG ---
EXAM: CT Cervical Spine Without IV contrast. CLINICAL HISTORY: Injury TECHNIQUE: Axial computed tomography images of the cervical spine without intravenous contrast. Sagittal and coronal reformatted images were generated. COMPARISON: None provided. FINDINGS: ALIGNMENT: Bony alignment is anatomic. DEGENERATIVE CHANGES: No significant canal stenosis or neural foraminal narrowing evident. SOFT TISSUES: The prevertebral soft tissues are within normal limits. BONES: No acute fracture or aggressive appearing osseous lesion. MISCELLANEOUS: Thyroid nodules within isthmus and right lobe, nonemergent ultrasound recommended for further evaluation. IMPRESSION: 1. No acute cervical spine injury. 2. Thyroid nodules within isthmus and right lobe. 3. Nonemergent thyroid ultrasound recommended for further evaluation. /Estephania
[2025-02-05] MEDS ORDERED: OCTYL 2-CYANOACRYLATE 1 EACH TP ONE (10:20)
--- NOTE | 2025-02-05 10:20 | NUR ---
PT JUST NOW PLACED IN ED HALLWAY A
--- NOTE | 2025-02-05 10:23 | HMCIMG ---
EXAM: CT Head Without IV contrast. CLINICAL HISTORY: Injury TECHNIQUE: Axial computed tomography images of the head/brain without intravenous contrast. COMPARISON: CT brain without contrast, dated September 16, 2023. FINDINGS: BRAIN: No evidence of acute hemorrhage. No mass lesion. No CT evidence for acute territorial infarct. No midline shift or extra-axial collections. Diffuse cerebral volume loss in the form of prominent cortical sulci and the ventricular system. Diffuse hypodensities in bilateral periventricular white matter, suggestive of chronic small vessel ischemic changes. VENTRICLES: No hydrocephalus. ORBITS: The orbits are unremarkable. SINUSES AND MASTOIDS: The paranasal sinuses and mastoid air cells are clear. BONES: No fracture. SOFT TISSUES: Unremarkable. IMPRESSION: No acute trauma-related intracranial abnormality. Diffuse cerebral atrophy with chronic small vessel ischemic changes. /Marlow
--- NOTE | 2025-02-05 10:27 | NUR ---
WOUND CARE COMPLETED PER ORDER. DERMABOND APPLIED PER ORDER.
[2025-02-05 10:30] VITALS: BP 154/79; PULSE 68; RESP 18; TEMP 97.9; O2SAT 98
== END 2025-02-05 10:32 | disposition home or self-care (01) ==
LOC: EDH 08:56
DX: S01.01XA Laceration without foreign body of scalp, initial encounter (principal); E11.9 Type 2 diabetes mellitus without complications; E78.00 Pure hypercholesterolemia, unspecified; I10 Essential (primary) hypertension; Z88.0 Allergy status to penicillin; Z88.8 Allergy status to other drugs, medicaments and biological substances; Z79.52 Long term (current) use of systemic steroids; Z90.49 Acquired absence of other specified parts of digestive tract; W18.39XA Other fall on same level, initial encounter; Y93.89 Activity, other specified; Y92.89 Other specified places as the place of occurrence of the external cause; Y99.8 Other external cause status
CPT/HCPCS: 12001; 70450; 72125; 99284